=== PATIENT | male | born 1980 | race Caucasian/White ===

== ENCOUNTER 2017-04-07 15:13 | Outpatient (CLI) | payer OTHER | END 2017-04-07 15:14 | disposition critical access hospital (66) | LOC: EMS 15:13 | PROVIDERS: ATTEND Surgery | DX: R55 Syncope and collapse (principal) | CPT/HCPCS: A0425; A0427 ==

== ENCOUNTER 2017-04-07 15:42 | Emergency (ER) | payer OTHER ==
[2017-04-07] MEDS ORDERED: ALPRAZolam 0.25 MG TABLET PO STA (15:45)
[2017-04-07 15:49] VITALS: BP 129/81
[2017-04-07] MEDS ORDERED: ALPRAZolam 0.25 MG TABLET PO ONE (15:56)
--- NOTE | 2017-04-07 16:03 | ED Physician Documentation ---
History of Present Illness - Stated complaint Stated Complaint: ANXIETY, HYPERVENTILATION, NEAR SYNCOPE - Chief complaint Chief Complaint: General - History obtained from History obtained from: Patient, Family, EMS - History of Present Illness Timing: Today Pain level max: 0 Pain level now: 0 Improved by: xanax Worsened by: stress - Additonal information Additional information: anxiety attack today. Started at work. [place] hot, flushed, shakey. [place] his vision "going dark" and then had near syncope. out of xanax x3 weeks. states similar to past panic attacks. Review of Systems Constitutional: denies: Fever, Chills Nose: denies: Rhinorrhea / runny nose, Congestion Throat: denies: Sore throat Cardiac: denies: Chest pain / pressure, Calf pain Respiratory: denies: Dyspnea, Cough, Hemoptysis, Wheezing GI: denies: Abdominal Pain, Nausea, Vomiting, Diarrhea Skin: denies: Rash Musculoskeletal: denies: Neck pain, Back pain Neurologic: denies: Headache PD PAST MEDICAL HISTORY - Past Medical History Past Medical History: Yes Psych: Anxiety - Past Surgical History Past Surgical History: No - Present Medications Home Medications: Ambulatory Orders Medication Instructions Recorded Confirmed Alprazolam [Xanax] 0.5 mg PO BID PRN #7 tablet 04/07/17 - Allergies Allergies/Adverse Reactions: Allergies Allergy/AdvReac Type Severity Reaction Status Date / Time No Known Drug Allergies Allergy Verified 07/28/16 11:40 - Social History Does the pt smoke?: Yes Smoking Status: Current every day smoker Does the pt drink ETOH?: Yes Does the pt have substance abuse?: Yes - Immunizations Immunizations are current?: No PD ED PE NORMAL - Vitals Vital signs reviewed: Yes - General General: Alert and oriented X 3, Well developed/nourished - HEENT HEENT: Moist mucous membranes - Neck Neck: Supple, no meningeal sign - Cardiac Cardiac: RRR, Strong equal pulses - Respiratory Respiratory: No respiratory distress, Clear bilaterally - Abdomen Abdomen: Soft, Non tender, Non distended - Derm Derm: Warm and dry - Extremities Extremities: No edema, No calf tenderness / cord - Neuro Neuro: Alert and oriented X 3 - Psych Psych: Normal mood, Normal affect Results - Vitals Vitals: Vital Signs - 24 hr 04/07/17 15:46 Temperature 37 C Heart Rate 67 Respiratory 18 Rate Blood Pressure 129/81 H O2 Saturation 99 Oxygen O2 Source Room air - EKG (time done) 1559 Rate: Rate (enter#) (64) Rhythm: NSR [place]: Normal Intervals: Prolonged IN, RBBB (incomplete) QRS: Normal Ischemia: ST elevation c/w repol Computer interpretation: Agree with computer PD MEDICAL DECISION MAKING - ED course Complexity details: re-evaluated patient, considered differential, d/w patient, d/w family ED course: Patient is a 37-year-old male who presents to the emergency department with a panic attack today. Received Xanax and symptoms resolved. Feels much better. Request to go home at this time. He did have a near syncopal event, but appears to be related to the panic attack. No acute findings on EKG. No chest pain. Patient and family counseled regarding signs and symptoms for which I believe and urgent re-evaluation would be necessary. Patient with good understanding of and agreement to plan and is comfortable going home at this time This document was made in part using voice recognition software. While efforts are made to proofread this document, sound alike and grammatical errors may occur. Departure - Departure Disposition: 01 Home, Self Care Clinical Impression: Anxiety Condition: Good Instructions: ED Panic Attack Follow-Up: your,doctor in 1 week [Other] Prescriptions: Alprazolam [Xanax] 0.5 mg PO BID PRN #7 tablet PRN Reason: Anxiety Comments: Return if you worsen. Do not drive or operate heavy machinery while taking xanax. Discharge Date/Time: 04/07/17 16:31
== END 2017-04-07 16:31 | disposition home or self-care (01) ==
LOC: EDUNIT# → ED 15:42
DX: F41.9 Anxiety disorder, unspecified (principal); I45.10 Unspecified right bundle-branch block; R94.31 Abnormal electrocardiogram [ECG] [EKG]; F17.200 Nicotine dependence, unspecified, uncomplicated
CPT/HCPCS: 93005; 99283; 99284; A9270

== ENCOUNTER 2019-01-21 23:43 | Emergency (ER) | payer OTHER ==
--- NOTE | 2019-01-22 00:45 | ED Physician Documentation ---
PD HPI SKIN - Stated complaint Stated Complaint: RASH - Chief complaint Chief Complaint: Wound - History obtained from History obtained from: Patient - History of Present Illness Timing - onset: Yesterday Timing - duration: Hours Timing - details: Gradual onset, Still present Location: Bodywide Quality / character: Itchy, Discolored Associated symptoms: Myalgias, Headache, Other (URI). No: Fever Contributing factors: Recent illness Similar symptoms before: Has not had sx before Recently seen: Not recently seen - Additional information Additional information: 38-year-old previously well male has developed cough and congestion over the past 2 weeks his children have been sick with a strep and he has developed a rash that started yesterday morning and is now body wide it itches and it is erythematous and slightly raised. He has not had this previously. He does state that he has had trouble with his sinuses and ears a number of times. Review of Systems Constitutional: reports: Myalgias, Fatigue. denies: Fever Eyes: denies: Decreased vision Ears: reports: Ear pain Nose: reports: Rhinorrhea / runny nose, Congestion, Sinus pressure / pain Throat: reports: Sore throat Cardiac: denies: Chest pain / pressure, Palpitations Respiratory: reports: Cough. denies: Dyspnea GI: denies: Nausea, Vomiting : denies: Dysuria PD PAST MEDICAL HISTORY - Past Medical History Past Medical History: Yes Psych: Anxiety - Past Surgical History Past Surgical History: No - Present Medications Home Medications: Ambulatory Orders Medication Instructions Recorded Confirmed Alprazolam [Xanax] 0.5 mg PO BID PRN #7 tablet 04/07/17 01/21/19 Sertraline [Zoloft] 1 tab PO DAILY 01/21/19 01/21/19 Amox/Clav 875/125 [Augmentin] 1 each PO Q12H #20 tablet 01/22/19 - Allergies Allergies/Adverse Reactions: Allergies Allergy/AdvReac Type Severity Reaction Status Date / Time No Known Drug Allergies Allergy Verified 01/21/19 23:52 - Social History Does the pt smoke?: Yes Smoking Status: Current every day smoker Does the pt drink ETOH?: Yes Does the pt have substance abuse?: Yes - Immunizations Immunizations are current?: No - POLST Patient has POLST: No PD ED PE NORMAL - Vitals Vital signs reviewed: Yes (hypertensive ) - General General: Alert and oriented X 3, No acute distress, Well developed/nourished - HEENT HEENT: Atraumatic, PERRL, EOMI, Other (right TM is inflamed along the umbo and the left is clear. There is mild inflamation to the posterior pharynx without exudate. ) - Neck Neck: Supple, no meningeal sign, No bony TTP - Cardiac Cardiac: RRR, No murmur - Respiratory Respiratory: No respiratory distress, Clear bilaterally - Abdomen Abdomen: Soft, Non tender - Back Back: No CVA TTP, No spinal TTP - Derm Derm: Normal color, Warm and dry, Other (There is a fine scarlatiniform rash over the back and extremities and anterior chest.) - Neuro Neuro: Alert and oriented X 3, pest control applicator 2-12 intact, No motor deficit, No sensory deficit, Normal speech Eye Opening: Spontaneous Motor: Obeys Commands Verbal: Oriented GCS Score: 15 - Psych Psych: Normal mood, Normal affect Results - Vitals Vitals: Vital Signs - 24 hr 01/21/19 23:45 Temperature 36.4 C L Heart Rate 75 Respiratory 18 Rate Blood Pressure 142/104 H O2 Saturation 100 Oxygen O2 Source Room air - Labs Labs: Laboratory Tests 01/22/19 00:52 Group A Strep Rapid Negative PD MEDICAL DECISION MAKING - ED course Complexity details: considered differential, d/w patient ED course: 38-year-old male with a body wide rash appears to have otitis on examination a rapid strep is obtained I suspect the urticaria the patient has is related to his URI and he is administered dexamethasone 10 mg orally we will place him on some antibiotic. Departure - Departure Disposition: 01 Home, Self Care Clinical Impression: Urticaria Otitis media Qualifiers: Otitis media type: suppurative Chronicity: acute Laterality: right Recurrence: non-recurrent Spontaneous tympanic membrane rupture: without spontaneous rupture Qualified Code(s): H66.001 - Acute suppurative otitis media without spontaneous rupture of ear drum, right ear Condition: Stable Instructions: ED Otitis Media Acute Adult, ED Urticaria Follow-Up: [facility] [Provider Group] Prescriptions: Amox/Clav 875/125 [Augmentin] 1 each PO Q12H #20 tablet
[2019-01-22] MEDS ORDERED: DEXAMETHASONE 10 MG/ML VIAL PO STA (00:54)
[2019-01-22] MEDS ORDERED: CHERRY SYRUP 10 ML UDC PO ONE (00:54)
[2019-01-22] MEDS ORDERED: AMOX/CLAV 875 MG/125 MG TABLET PO STA (01:39)
[2019-01-22 01:50] VITALS: BP 135/95
== END 2019-01-22 01:53 | disposition home or self-care (01) ==
LOC: ED 23:43
DX: L50.9 Urticaria, unspecified (principal); H66.001 Acute suppurative otitis media without spontaneous rupture of ear drum, right ear; F17.200 Nicotine dependence, unspecified, uncomplicated
CPT/HCPCS: 87070; 87430; 99283; A9270

== ENCOUNTER 2019-01-23 02:05 | Emergency (ER) | payer OTHER ==
--- NOTE | 2019-01-23 02:20 | ED Physician Documentation ---
PD HPI SKIN - Stated complaint Stated Complaint: FACE SWELLING/RASH - Chief complaint Chief Complaint: Wound - History obtained from History obtained from: Patient - History of Present Illness Timing - onset: Yesterday ((Monday, 01/21)) Timing - duration: Hours Timing - details: Gradual onset Quality / character: Itchy, Burning Improved by: Oral steroids (improved after PO decadron given in ED yesterday) Contributing factors: Unknown Similar symptoms before: Has not had sx before Recently seen: Emergency Dept - Additional information Additional information: pruritic, burning rash since yesterday, T+R from this ED, given augmentin for OM and pharyngitis (he says he has no ear symptoms such as fullness or discomfort, but says his throat has been "bothering me" for nearly 1 month). He returns c/o increasing rash: increased in intensity of burning and itching as well as spread to more areas. Rash is on trunk, back, all extremities, and neck. Review of Systems Constitutional: denies: Fever, Chills, Myalgias, Fatigue, Sweats Ears: denies: Ear pain Throat: reports: Sore throat Respiratory: reports: Reviewed and negative GI: reports: Reviewed and negative Skin: reports: Rash PD PAST MEDICAL HISTORY - Past Medical History Past Medical History: Yes Psych: Anxiety - Past Surgical History Past Surgical History: No - Present Medications Home Medications: Ambulatory Orders Medication Instructions Recorded Confirmed Alprazolam [Xanax] 0.5 mg PO BID PRN #7 tablet 04/07/17 01/21/19 Sertraline [Zoloft] 1 tab PO DAILY 01/21/19 01/21/19 Amox/Clav 875/125 [Augmentin] 1 each PO Q12H #20 tablet 01/22/19 hydrOXYzine pamoate [Hydroxyzine 25 - 50 mg PO Q8HR PRN #20 capsule 01/23/19 Pamoate] predniSONE [Prednisone] 40 mg PO DAILY 4 Days #8 tablet 01/23/19 - Allergies Allergies/Adverse Reactions: Allergies Allergy/AdvReac Type Severity Reaction Status Date / Time No Known Drug Allergies Allergy Verified 01/21/19 23:52 - Social History Does the pt smoke?: Yes Smoking Status: Current every day smoker Does the pt drink ETOH?: Yes Does the pt have substance abuse?: Yes - Immunizations Immunizations are current?: No - POLST Patient has POLST: No PD ED PE NORMAL - Vitals Vital signs reviewed: Yes - General General: Alert and oriented X 3, No acute distress, Well developed/nourished - HEENT HEENT: Moist mucous membranes, Other (mild posterior oropharyngeal erythema without edema; airway widely patent) - Respiratory Respiratory: No respiratory distress, Clear bilaterally - Extremities Extremities: No edema PD ED PE EXPANDED - Derm Derm: Rash (diffuse exanthem, erythematous maculopapular exanthem in patches on abdomen, chest, back, BUE and proximal BLE; blanches with pressure. no conf luence) Results - Vitals Vitals: Vital Signs - 24 hr 01/23/19 01/23/19 02:08 02:49 Temperature 37.2 C Heart Rate 76 Respiratory 18 Rate Blood Pressure 140/103 H 129/97 H O2 Saturation 97 Oxygen O2 Source Room air PD MEDICAL DECISION MAKING - ED course Complexity details: reviewed old records, considered differential, d/w patient Departure - Departure Disposition: 01 Home, Self Care Clinical Impression: Urticaria Condition: Good Instructions: ED Urticaria Prescriptions: hydrOXYzine pamoate [Hydroxyzine Pamoate] 25 - 50 mg PO Q8HR PRN #20 capsule PRN Reason: Itching predniSONE [Prednisone] 40 mg PO DAILY 4 Days #8 tablet Discharge Date/Time: 01/23/19 02:51
[2019-01-23] MEDS ORDERED: DEXAMETHASONE 10 MG/ML VIAL PO STA (02:41)
[2019-01-23] MEDS ORDERED: CHERRY SYRUP 10 ML UDC PO ONE (02:41)
[2019-01-23 02:49] VITALS: BP 129/97
== END 2019-01-23 02:51 | disposition home or self-care (01) ==
LOC: ED 02:05
DX: L50.9 Urticaria, unspecified (principal); F17.200 Nicotine dependence, unspecified, uncomplicated
CPT/HCPCS: 99283; A9270

== ENCOUNTER 2023-03-07 16:14 | Emergency (ER) | payer MEDICAID, OTHER ==
[2023-03-07 16:29] VITALS: BP 120/96
--- NOTE | 2023-03-07 16:42 | ED Physician Documentation ---
PD HPI ABD PAIN - Stated complaint Stated Complaint: ABD PAIN - Chief complaint Chief Complaint: Abd Pain - History obtained from History obtained from: Patient - History of Present Illness Timing - details: Gradual onset Quality: Sharp, Dull, Throbbing Location: All over / everywhere, LLQ Radiation: Chest, Lower back, Left flank, Left shoulder Improved by: Eating Worsened by: Position Associated symptoms: No: Fever, Nausea, Vomiting, Hematemesis, Diarrhea, Constipation, Melena, Hematochezia, Dysuria, Hematuria, Chest pain, Dizzy, Near syncope / syncope, Loss of appetite, Weight loss, Other Similar symptoms before: Has not had sx before - Additional information Additional information: 43-year-old male presents with about a weeklong history of abdominal pain. Pain started in the left lower quadrant which is now somewhat General. He states he feels better when he eats and has no associated nausea, vomiting, diarrhea or constipation, no urinary symptoms, no fever or chills.He does endorse some indigestion, states he has taken Tums about a week ago and felt like it helped but then symptoms recurred. He does endorse significant stress recently with a new job and states that he has been eating "gas station food" and sitting in the car for long periods of time over the course of the last couple of weeks with his new job. He states he does not drink much water or eat really any fresh food at this point time. He also drinks regularly, most days has a drink or 2 in the evening. No abdominal surgeries, no other significant medical history. Review of Systems Constitutional: reports: Reviewed and negative Eyes: reports: Reviewed and negative Nose: reports: Reviewed and negative Throat: reports: Reviewed and negative Cardiac: reports: Reviewed and negative Respiratory: reports: Reviewed and negative GI: reports: Abdominal Pain. denies: Abdominal Swelling, Nausea, Vomiting, Constipation, Diarrhea, Hematemesis, Bloody / black stool : reports: Reviewed and negative Skin: reports: Reviewed and negative Musculoskeletal: reports: Back pain (chronic low back [place]), Reviewed and negative (chronic low back pain) Neurologic: reports: Reviewed and negative Psychiatric: reports: Anxiety Endocrine: reports: Reviewed and negative Immunocompromised: reports: Reviewed and negative PD PAST MEDICAL HISTORY - Past Medical History Past Medical History: Yes Psych: Anxiety - Past Surgical History Past Surgical History: No - Present Medications Home Medications: Ambulatory Orders Medication Instructions Recorded Confirmed Alprazolam [Xanax] 0.5 mg PO BID PRN #7 tablet 04/07/17 01/21/19 Sertraline [Zoloft] 1 tab PO DAILY 01/21/19 01/21/19 Amox/Clav 875/125 [Augmentin] 1 each PO Q12H #20 tablet 01/22/19 hydrOXYzine pamoate [Hydroxyzine 25 - 50 mg PO Q8HR PRN #20 capsule 01/23/19 Pamoate] predniSONE [Prednisone] 40 mg PO DAILY 4 Days #8 tablet 01/23/19 - Allergies Allergies/Adverse Reactions: Allergies Allergy/AdvReac Type Severity Reaction Status Date / Time No Known Drug Allergies Allergy Verified 03/07/23 16:28 - Social History Does the pt smoke?: Yes Smoking Status: Current every day smoker Does the pt drink ETOH?: Yes Does the pt have substance abuse?: Yes - Immunizations Immunizations are current?: No - POLST Patient has POLST: No PD ED PE NORMAL - Vitals Vital signs reviewed: Yes - General General: Alert and oriented X 3, No acute distress, Well developed/nourished - HEENT HEENT: Atraumatic, Pharynx benign - Neck Neck: Supple, no meningeal sign, No JVD - Cardiac Cardiac: RRR, No murmur - Respiratory Respiratory: No respiratory distress, Clear bilaterally - Abdomen Abdomen: Normal bowel sounds, Soft, Non tender, Non distended, Other (no repr oducible abd ttp but reports generally sore) - Back Back: No CVA TTP, No spinal TTP - Derm Derm: Normal color, Warm and dry, No rash - Extremities Extremities: No deformity, No tenderness to palpate, Normal ROM s pain - Neuro Neuro: Alert and oriented X 3 Eye Opening: Spontaneous Motor: Obeys Commands Verbal: Oriented GCS Score: 15 - Psych Psych: Normal mood, Normal affect Results - Vitals Vitals: Vital Signs - 24 hr 03/07/23 16:25 Temperature 36.9 C Heart Rate 85 Respiratory 16 Rate Blood Pressure 120/96 H O2 Saturation 98 Oxygen O2 Source Room air - Labs Labs: Laboratory Tests 03/07/23 03/07/23 03/07/23 16:47 16:47 17:45 WBC 6.5 RBC 4.83 Hgb 16.0 Hct 45.9 MCV 95.0 H MCH 33.1 H MCHC 34.9 RDW 12.5 Plt Count 227 MPV 9.0 Neut # (Auto) 4.5 Lymph # (Auto) 1.3 L [place] # (Auto) 0.6 Eos # (Auto) 0.1 Baso # (Auto) 0.0 Absolute Nucleated RBC 0.00 Nucleated RBC % 0.0 Sodium 138 Potassium 3.9 Chloride 100 L Carbon Dioxide 26 Anion Gap 12.0 BUN 13 Creatinine 0.7 Estimated GFR (MDRD) 123 Glucose 95 Calcium 9.8 Total Bilirubin 0.8 AST 116 H ALT 181 H Alkaline Phosphatase 73 Total Protein 7.6 Albumin 4.5 Globulin 3.1 Albumin/Globulin Ratio 1.5 Lipase 47 Urine Color YELLOW Urine Clarity CLEAR Urine pH 7.5 Ur Specific [place] 1.010 Urine Protein NEGATIVE Urine Glucose (UA) NEGATIVE Urine Ketones NEGATIVE Urine Occult Blood NEGATIVE Urine Nitrite NEGATIVE Urine Bilirubin NEGATIVE Urine Urobilinogen 0.2 (NORMAL) Ur Leukocyte Esterase NEGATIVE Ur Microscopic Review NOT INDICATED Urine Culture Comments NOT INDICATED PD Medical Decision Making - ED course Complexity details: reviewed old records, reviewed results, re-evaluated patient, considered differential, d/w patient, d/w family ED course: This is a 43-year-old male Who presented with generalized abdominal pain over the course of the last week. He is very well-appearing on physical exam, with stable vital signs, nontoxic. He has Some generalized abdominal soreness but no focal abdominal pain, guarding, or peritoneal signs. Differentials considered included diverticulitis, indigestion or gastric ulcer, gas pains, less likely cholecystitis, appendicitis or pancreatitis. We obtained labs which are generally reassuring though he does have elevated AST and ALT. The patient does admit to regular alcohol use as well as a high-fat diet recently. I yates bsequently obtained a CT scan which showed fatty infiltration of the liver but no other acute findings to explain patient's pain. I followed back up with patient and he was feeling better despite not receiving any additional treatment here today. I went over the findings of the CT scan and labs with him and encouraged him to follow-up with his PCP in the next month or so to follow-up on his liver function testing, try to adhere to a low-fat diet and abstain from alcohol until follow-up liver enzymes. I do suspect that given his stress and job changes Recently that this is contributing to his abdominal pain. I discussed supportive measures and recommended that he trial a [id number] PPI or H2 leigh ann acid encyclopedia research worker for his symptoms. I discussed return precautions if new or worsening symptoms.Patient was discharged home in stable condition Departure - Departure Disposition: 01 Home, Self Care Clinical Impression: Elevated liver enzymes Abdominal pain Qualifiers: Abdominal location: generalized Qualified Code(s): R10.84 - Generalized abdominal pain Condition: Good Instructions: NAFLD, ED Abdominal Pain Unkn Cause Male Comments: Your work-up today showed an elevation in your liver enzymes which may be due to fatty infiltration of the liver due to diet or alcohol use. Please consider adhering to a low-fat diet and abstaining from alcohol. I would like you to follow-up with your primary doctor within the next several weeks to have your liver enzymes repeated. The labs are otherwise stable and did not show any sign of infection, the CT scan did not show any explanation for your pain but I suspect it is due to to stress, indigestion and diet. You may consider starting an cpxz-wah-jqtroff acid encyclopedia research worker such as Prilosec.
[2023-03-07 17:03] LABS: BASOPHILS % (AUTO) 0.6 %; EOSINOPHILS # (AUTO) 0.1 10^3/uL (0.0-0.7); EOSINOPHILS % (AUTO) 1.2 %; HCT - HEMATOCRIT 45.9 % (42.0-52.0); LYMPHOCYTES # (AUTO) 1.3 10^3/uL (1.5-3.5); LYMPHOCYTES % (AUTO) 20.3 %; MEAN CORPUSCULAR HEMOGLOBIN 33.1 pg (27.0-31.0); MEAN CORPUSCULAR HGB CONC 34.9 g/dL (32.0-36.0); MONOCYTES # (AUTO) 0.6 10^3/uL (0.0-1.0); MONOCYTES % (AUTO) 8.7 %; NEUTROPHILS # (AUTO) 4.5 10^3/uL (1.5-6.6); PLT - PLATELET COUNT 227 10^3/uL (130-450); RED BLOOD COUNT 4.83 10^6/uL (4.70-6.10); RED CELL DISTRIBUTION WIDTH 12.5 % (12.0-15.0); WHITE BLOOD COUNT 6.5 x10^3/uL (4.8-10.8)
[2023-03-07 17:04] LABS: ALBUMIN 4.5 g/dL (3.2-5.5); ALBUMIN/GLOBULIN RATIO 1.5 (1.0-2.2); BILIRUBIN,TOTAL 0.8 mg/dL (0.2-1.0); CALCIUM 9.8 mg/dL (8.5-10.3); CREATININE 0.7 mg/dL (0.6-1.2); POTASSIUM 3.9 mmol/L (3.5-5.0); TOTAL PROTEIN 7.6 g/dL (6.7-8.2)
[2023-03-07] MEDS ORDERED: iohexoL-300 100 ML VIAL ONE (17:17)
[2023-03-07 17:53] LABS: BILIRUBIN,URINE NEGATIVE (NEGATIVE); GLUCOSE, URINE (UA) NEGATIVE (NEGATIVE); KETONES,URINE (UA) NEGATIVE (NEGATIVE); LEUKOCYTE ESTERASE, URINE NEGATIVE (NEGATIVE); NITRITE,URINE NEGATIVE (NEGATIVE); OCCULT BLOOD,URINE NEGATIVE (NEGATIVE); PH,URINE 7.5 PH (5.0-7.5); PROTEIN,URINE NEGATIVE (NEGATIVE); UROBILINOGEN,URINE 0.2 (NORMAL) E.U./dL (NORMAL)
--- NOTE | 2023-03-07 17:55 | CT Report ---
PROCEDURE: ABDOMEN/PELVIS W INDICATIONS: abd pain, elevated LFTs CONTRAST: 100mL Omni 300 TECHNIQUE: After the administration of intravenous contrast, 5 mm thick sections acquired from the diaphragms to the symphysis. 5 mm thick coronal and sagittal reformats were acquired. For radiation dose reducti on, the following was used: automated exposure control, adjustment of mA and/or kV according to carol ent size. COMPARISON: None FINDINGS: Image quality: Excellent. Lung bases and heart: Cardiomegaly. Liver: Hepatic steatosis. Gallbladder and biliary tree: No radiopaque stones or wall thickening. No biliary dilation. Spleen: No splenomegaly. Pancreas: No pancreatic ductal dilation. Adrenals: Calcified right adrenal gland, presumably from prior infection or vascular injury. Kidneys and ureters: No hydronephrosis. No renal cystic lesion which requires follow up. No solid mas s. Bowel and peritoneum: No bowel distension. No pathologic free fluid. Normal appendix. Lymph nodes: No central or retroperitoneal adenopathy. Vessels: No infrarenal aortic aneurysm. PELVIS Reproductive organs: Unremarkable. Bladder: No abnormal wall thickening, accounting for underdistension. Pelvic lymph nodes: No pelvic adenopathy by size criteria. Bones: No aggressive osseous abnormality. Other: No significant ventral or inguinal hernia. IMPRESSION: No findings to explain the patient's abdominal pain/flank pain. No nephrolithiasis. Hepatic steatosis. Reviewed by: Armen Kelsey on 03/07/2023 4:54 PM AKWILL Approved by: Armen Kelsey on 03/07/2023 4:54 PM AKDT Station ID: [id number]
[2023-03-07] MEDS ORDERED: iohexoL-300 100 ML VIAL IVP ONE (17:59)
[2023-03-07 18:00] LABS: CLARITY,URINE CLEAR (CLEAR)
== END 2023-03-07 18:26 | disposition home or self-care (01) ==
LOC: ED 16:14
DX: R10.84 Generalized abdominal pain (principal); R74.8 Abnormal levels of other serum enzymes; F17.200 Nicotine dependence, unspecified, uncomplicated
CPT/HCPCS: 36415; 74177; 80053; 81003; 83690; 85025; 99283; 99284; Q9967; 81001; 87086

== ENCOUNTER 2023-12-11 06:37 | Day surgery (SDC) | payer MEDICAID ==
[2023-12-11] MEDS: LACTATED RINGERS 1,000 ML IV ONE (06:49)
[2023-12-11 07:04] VITALS: O2SAT 97
--- NOTE | 2023-12-11 07:29 | ANESTHESIA ---
Pre-Anesthesia VS, & Labs - Diagnosis DESIRES STERILIZATION - Procedure VASECTOMY Vital Signs: Temp Pulse Resp BP Pulse Ox O2 Flow Rate 37.1 C 83 20 135/101 H 97 12/11/23 06:49 12/11/23 06:49 12/11/23 06:49 12/11/23 06:49 12/11/23 06:49 Height: 5 ft 11 in Weight (kg): 89.4 kg Body Mass Index: 27.4 BMI Classification: Overweight Home Medications and Allergies Home Medications: Ambulatory Orders No Known Home Medications 12/06/23 No Known Home Medications 12/06/23 Allergies/Adverse Reactions: Allergies Allergy/AdvReac Type Severity Reaction Status Date / Time lidocaine AdvReac resistance-doesn't Verified 12/06/23 09:11 work Anes History & Medical History - Anesthetic History Anesthesia Complications: reports: No previous complications (WAS RESISTANT TO LIDOCAINE...RED HAIR) Family history of Anesthesia Complications: Denies - Medical History Cardiovascular: reports: None Pulmonary: reports: None Gastrointestinal: reports: None Urinary: reports: None Musculoskeletal: reports: None Endocrine/Autoimmune: Skin: reports: Eczema Smoking Status: Former smoker (QUIT IN ) - Surgical History Orthopedic: reports: Rotator cuff repair Exam General: Alert Dental: WNL Mouth Openin Fingerbreadth Neck Mobility: Normal Mallampati classification: II Thyromental Distance: 4-6 cm Respiratory: Lungs clear Cardiovascular: Regular rate Plan Anesthesia Type: MAC Consent for Procedure(s) Verified and Reviewed: Yes Code Status: Attempt Resuscitation ASA classification: 2-Mild systemic disease Is this case an emergency?: No
[2023-12-11] MEDS ORDERED: fentaNYL 100 MCG/2 ML VIAL IVP PRN ×2 (07:32→09:35)
[2023-12-11] MEDS ORDERED: ONDANSETRON 4 MG/2 ML VIAL IVP PRN ×3 (07:32→09:35)
[2023-12-11] MEDS ORDERED: ATROPINE ABBOJECT 1 MG/10 ML SYRINGE IVP PRN ×2 (07:32→09:35)
[2023-12-11] MEDS ORDERED: ePHEDrine 50 MG/ML VIAL IVP PRN ×2 (07:32→09:35)
[2023-12-11] MEDS ORDERED: METOCLOPRAMIDE 10 MG/2 ML VIAL IVP PRN ×2 (07:32→09:35)
[2023-12-11] MEDS ORDERED: NALOXONE 0.4 MG/ML VIAL IVP PRN ×2 (07:32→09:35)
[2023-12-11] MEDS ORDERED: LACTATED RINGERS 1,000 ML IV SCH ×2 (08:00→10:00)
[2023-12-11] MEDS: LACTATED RINGERS 100 ML IV ONE (08:19)
[2023-12-11] MEDS: LIDOCAINE 1% 50 ML MDV SUBQ ONE (08:21)
[2023-12-11] MEDS ORDERED: HYDROcod/ACETAM 5/325 MG TABLET PO PRN (08:36)
[2023-12-11 08:41] VITALS: BP 124/87
--- NOTE | 2023-12-11 08:41 | Discharge Plan ---
Discharge Plan Problem Reviewed?: Yes Disposition: 01 Home, Self Care Condition: Good Diet: Regular Activity Restrictions: Additional Comments (as instructed) Shower Restrictions: No (You can shower starting tomorrow. No bathing for 1 week) Driving Restrictions: No Instruction Topics: Vasectomy No Scalpel No Smoking: If you smoke, Please STOP! Call for help.
--- NOTE | 2023-12-11 08:43 | OPERATIVE REPORT ---
Operative Report - General Procedure Date: 12/11/23 Planned Procedure: Bilateral vasectomy Pre-Op Diagnosis: elective sterilization Procedure Performed: Bilateral no scalpel vasectomy Post Op Diagnosis: elective sterilization - Procedure Note Primary Surgeon: Merrick Anesthesia Provider: REGINALDO Anesthesia Technique: MAC Estimated Blood Loss (mL): 0 Findings: normal bilateral no scalpel vasectomy Complications: none - Other Other Information/Narrative: After informed consent was obtained the patient was brought to the OR and laid in the supine position. Patient was anesthetized per anesthesia protocols and prepped draped in usual sterile fashion. A formal timeout was performed reconfirming the patient, procedure and laterality. 1% lidocaine was instilled into the right hemiscrotum after first identifying and isolating the right vas. Using a dissecting clamp we gently dissected his scrotal skin. The vas sheath was grasped using a vas clamp, the sheath was incised and the vas was identified. It was clamped off on either side and a 1 cm bridging vas was cauterized and removed. The ends were cauterized. Each end was then suture-ligated using 3-0 chromic suture. There was excellent hemost asis. The distal end was allowed to drop into the scrotum and a fascial interposition stitch was placed using chromic sutures. Again there was excellent hemostasis seen. A skin stitch was made using a 3-0 chromic suture. An identical procedure was performed on the left side. The patient tolerated the procedure well was brought to PACU for further incident. All counts were correct.
[2023-12-11] MEDS ORDERED: HYDROmorphone 0.5 MG/0.5 ML SYRINGE IVP PRN (09:35)
[2023-12-11] MEDS ORDERED: MORPHINE 2 MG/ML CARPUJECT IVP PRN (09:35)
--- NOTE | 2023-12-11 10:57 | ANESTHESIA POST OP EVALUATION ---
Anesthesia Post Eval - Post Anesthesia Eval Vitals: Last Vital Signs Temp 37.2 C 12/11/23 08:19 Pulse 70 12/11/23 08:32 Resp 12 12/11/23 08:32 BP 124/87 H 12/11/23 08:32 Pulse Ox 97 12/11/23 08:32 O2 Flow Rate CV Function Including HR & BP: Stable Pain Control: Satisfactory Nausea & Vomiting: Negative Mental Status: Baseline Respiratory Status: Airway Patent Hydration Status: Satisfactory Anesthesia Complications: None
== END 2023-12-11 06:38 | disposition home or self-care (01) ==
LOC: OR 06:37 → SDS 06:38
PROVIDERS: ATTEND Urology
DX: Z30.2 Encounter for sterilization (principal); Z87.891 Personal history of nicotine dependence
CPT/HCPCS: 55250; J7120